=== PATIENT | male | born 1990 | race African-American/Black ===

== ENCOUNTER 2020-01-01 07:01 | Emergency (ER) | payer MEDICAID ==
[2020-01-01] MEDS ORDERED: Lidocaine 1% PF 5 ML VIAL ONE (07:36)
[2020-01-01] MEDS ORDERED: Bacitracin 1 PK ONE (08:16)
== END 2020-01-01 08:30 | disposition home or self-care (01) ==
LOC: ERS 07:01
DX: S01.81XA Laceration without foreign body of other part of head, initial encounter (principal)
CPT/HCPCS: 12013; J2001

== ENCOUNTER 2020-01-06 20:37 | Emergency (ER) | payer MEDICARE, MEDICAID | END 2020-01-06 21:32 | disposition home or self-care (01) | LOC: ERS 20:37 | DX: S01.412D Laceration without foreign body of left cheek and temporomandibular area, subsequent encounter (principal); X58.XXXD Exposure to other specified factors, subsequent encounter ==

== ENCOUNTER 2020-11-15 21:23 | Emergency (ER) | payer MEDICARE, MEDICAID ==
[2020-11-15] MEDS ORDERED: Fluorescein Opthalmic Strip ONE (21:40)
[2020-11-15] MEDS ORDERED: Proparacaine 0.5% Opth 15 ML BOT ONE (21:40)
== END 2020-11-15 22:38 | disposition home or self-care (01) ==
LOC: ERS 21:23
DX: H57.12 Ocular pain, left eye (principal)
CPT/HCPCS: 99283